=== PATIENT | female | born 1980 | race Caucasian/White ===

== ENCOUNTER 2019-06-05 10:50 | Emergency (ER) | payer SELFPAY ==
--- NOTE | 2019-06-05 11:17 | EDM.PDOC ---
Scribed by Ivy Wu 06/05/19 1114 for Yemi De Dios MD ED HPI GENERAL MEDICAL PROBLEM - General Chief Complaint: ENT Problem Stated Complaint: MOUTH PAIN AND RASH ON CHEST Time Seen by Provider: 06/05/19 11:00 Source of Information: Reports: Patient, RN, RN Notes Reviewed History Limitations: Reports: No Limitations - History of Present Illness INITIAL COMMENTS - FREE TEXT/NARRATIVE: Patient presents to ER with complaint of skin rash and dental pain. Dental pain at right lower jaw started yesterday. The skin rash at the B/L breast folds has been present for 3 months. The dental pain is worse and swelling of the right inferior lower jaw. Denies fever, chills, or purulent drainage from the tooth or gums. Onset: Today Duration: Constant Location: Reports: Other (skin and dental ) Quality: Reports: Ache Severity: Mild Improves with: Reports: None Worsens with: Reports: None Associated Symptoms: Reports: No Other Symptoms Right Lower Oral/Mouth Pain Score (Numeric/FACES): 8 ED ROS ENT - Review of Systems Review Of Systems: ROS reveals no pertinent complaints other than HPI. ED EXAM, ENT - Physical Exam Exam: See Below Exam Limited By: No Limitations General Appearance: Alert, WD/WN, No Apparent Distress Eye Exam: Bilateral Eye: EOMI, Normal Inspection, PERRL Ears: Normal External Exam, Hearing Grossly Normal Nose: Normal Inspection, Normal Mucousa, No Blood Mouth/Throat: Normal Lips, Normal Oropharynx, Dental Abcess (Rt mandibular cannine abscess, chronic appearing gingivitis/gingival hypertrophy), Dental Pain , Dental Tenderness Head: Atraumatic, Normocephalic Neck: Normal Inspection, Supple, Non-Tender, Full Range of Motion Respiratory/Chest: No Respiratory Distress, Lungs Clear, Normal Breath Sounds, No Accessory Muscle Use Cardiovascular: Normal Peripheral Pulses, Regular Rate, Rhythm, No Edema (Female) Exam: Deferred Rectal (Female) Exam: Deferred Neurological: Alert, Oriented, Normal Cognition, Normal Gait, No Motor/Sensory Deficits Psychiatric: Normal Affect, Normal Mood Skin: Warm, Dry, Rash (Erythematous well defined rash as B/L breast and breast folds consistend with candadiasis.) Course - Vital Signs Last Recorded V/S: Last Vital Signs Temp 97.7 F 06/05/19 11:05 Pulse 90 06/05/19 11:05 Resp 14 06/05/19 11:05 BP 117/78 06/05/19 11:05 Pulse Ox 100 06/05/19 11:05 Departure - Departure Time of Disposition: 11:03 Disposition: Home, Self-Care 01 Condition: Good Clinical Impression: Dental abscess, Yeast dermatitis - Discharge Information *PRESCRIPTION DRUG MONITORING PROGRAM REVIEWED*: Not Applicable *COPY OF PRESCRIPTION DRUG MONITORING REPORT IN PATIENT FRANCISCA: Not Applicable Instructions: Dental Abscess, [id number], Skin Yeast Infection Forms: ED Department Discharge Additional Instructions: RX: Clindamycin 300mg. RX: Diflucan 100mg. RX: Nystatin cream. RX: Viscous Lidocaine 2%. Follow up with dentist at first available appointment. Follow up with your primary in 10-14 days. I have read and agree with the documentation that has been completed regarding this visit. By signing this record, I attest that the documentation was completed in my physical presence and is an accurate record of the encounter.
== END 2019-06-05 11:15 | disposition home or self-care (01) ==
LOC: DL.ED 10:50
DX: K04.7 Periapical abscess without sinus (principal); L30.8 Other specified dermatitis; B37.9 Candidiasis, unspecified
CPT/HCPCS: 99282; 99283

== ENCOUNTER 2019-06-06 16:29 | Emergency (ER) | payer SELFPAY ==
[2019-06-06] MEDS ORDERED: Clindamycin HCl 150 MG Cap PO ONE (18:14)
[2019-06-06] MEDS ORDERED: Fluconazole 100 MG Tab PO ONE (18:15)
[2019-06-06] MEDS ORDERED: Lidocaine 2% Viscous Solution 15 ML Cup PO ONE (18:16)
--- NOTE | 2019-06-06 18:22 | EDM.PDOC ---
Scribed by Ivy Wu 06/06/19 6767 for Yemi De Dios MD ED HPI GENERAL MEDICAL PROBLEM - General Chief Complaint: ENT Problem Stated Complaint: TOOTH PAIN Time Seen by Provider: 06/06/19 18:12 Source of Information: Reports: Patient, RN, RN Notes Reviewed History Limitations: Reports: No Limitations - History of Present Illness INITIAL COMMENTS - FREE TEXT/NARRATIVE: Patient presents to ER via POV with complaint of tooth pain. Patient was seen yesterday in ED and was sent home with an Rx for antibiotic. Patient states she did not get her prescription filled. Patient states she has taken 6-8 500mg Tylenol today for pain. Last dose was at 1600. Patient states it does not help with the pain. Patient rates pain at a 10/10. Denies fever/chills, N/V/D. Onset: Gradual Duration: Getting Worse Location: Reports: Other (tooth) Quality: Reports: Ache Severity: Moderate Improves with: Reports: None Worsens with: Reports: None Associated Symptoms: Reports: No Other Symptoms Right Anterior Oral/Mouth Pain Score (Numeric/FACES): 10 - Related Data Allergies Allergy/AdvReac Type Severity Reaction Status Date / Time amoxicillin Allergy Cannot Verified 06/06/19 18:02 Remember Penicillins Allergy Cannot Verified 06/06/19 18:02 Remember Home Meds: Home Meds . [No Known Home Meds] 06/05/19 [History] Past Medical History Neurological History: Reports: Other (See Below) Other Neuro History: epilepsy- not on meds. Was on depakote but this made seizures worse, so she was taken off of it and does well, has some breakthrough seizures at night. Social & Family History - Family History Family Medical History: Noncontributory - Tobacco Use Smoking Status *Q: Current Every Day Smoker Years of Tobacco use: 15 Packs/Tins Daily: 0.5 - Caffeine Use Caffeine Use: Reports: None - Recreational Drug Use Recreational Drug Use: No - Living Situation & Occupation Living situation: Reports: with Significant Other Occupation: Unemployed ED ROS ENT - Review of Systems Review Of Systems: ROS reveals no pertinent complaints other than HPI. ED EXAM, ENT - Physical Exam Exam: See Below Exam Limited By: No Limitations General Appearance: Alert, WD/WN, No Apparent Distress Eye Exam: Bilateral Eye: Normal Inspection Head: Atraumatic Neck: Normal Inspection Respiratory/Chest: No Respiratory Distress Cardiovascular: Regular Rate, Rhythm Skin: Warm, Dry, Rash (lower chest and below breasts with erythematous rash well defined border consistent with candiasis.) Course - Vital Signs Last Recorded V/S: Last Vital Signs Temp 97.6 F 06/06/19 18:02 Pulse 63 06/06/19 18:02 Resp 16 06/06/19 18:02 BP 114/77 06/06/19 18:02 Pulse Ox 100 06/06/19 18:02 - Orders/Labs/Meds Meds: Medications Discontinued Medications Generic Name Dose Route Start Last Admin Trade Name Freq PRN Reason Stop Dose Admin Clindamycin HCl 300 mg 06/06/19 18:14 Cleocin PO 06/06/19 18:15 ONETIME ONE Fluconazole 200 mg 06/06/19 18:15 Diflucan PO 06/06/19 18:16 ONETIME ONE Lidocaine HCl 15 ml 06/06/19 18:16 Xylocaine 2% Viscous PO 06/06/19 18:17 ONETIME ONE Departure - Departure Time of Disposition: 18:21 Disposition: Home, Self-Care 01 Condition: Good Clinical Impression: Dental abscess, Yeast dermatitis - Discharge Information *PRESCRIPTION DRUG MONITORING PROGRAM REVIEWED*: Not Applicable *COPY OF PRESCRIPTION DRUG MONITORING REPORT IN PATIENT FRANCISCA: Not Applicable Instructions: Dental Abscess, Skin Yeast Infection Forms: ED Department Discharge Additional Instructions: Clindamycin 150mg Diflucan 100mg Viscous Lidocaine 2% Fill prescriptions Friday, Jun.09, and take as prescribed. Follow up with a dentist at the first available appointment. I have read and agree with the documentation that has been completed regarding this visit. By signing this record, I attest that the documentation was completed in my physical presence and is an accurate record of the encounter.
[2019-06-06] MEDS ORDERED: Lidocaine 2% Viscous Solution 15 ML Cup ONE (18:31)
[2019-06-06] MEDS ORDERED: Fluconazole 100 MG Tab ONE (18:31)
[2019-06-06] MEDS ORDERED: Clindamycin HCl 150 MG Cap ONE (18:34)
== END 2019-06-06 18:46 | disposition home or self-care (01) ==
LOC: DL.ED 16:29
DX: K04.7 Periapical abscess without sinus (principal); L30.9 Dermatitis, unspecified; B37.2 Candidiasis of skin and nail; F17.210 Nicotine dependence, cigarettes, uncomplicated; Z88.0 Allergy status to penicillin; Z88.1 Allergy status to other antibiotic agents
CPT/HCPCS: 99282; A9270; 99283

== ENCOUNTER 2020-11-19 15:42 | Emergency (ER) | payer MEDICAID | END 2020-11-19 17:00 | disposition left against medical advice (07) | LOC: DL.ED 15:42 | DX: Z53.21 Procedure and treatment not carried out due to patient leaving prior to being seen by health care provider (principal) ==